=== PATIENT | female | born 1955 | race American Indian/Alaskan Native ===

== ENCOUNTER 2017-01-24 14:44 | Outpatient (CLI) | payer OTHER ==
--- NOTE | 2017-01-25 09:14 | Mammography Report ---
Screening mammogram: Routine views are obtained. In the lateral right breast is an inhomogeneous lobulated nodule. In the central left breast there are also focal asymmetries. The remainder the breast pattern is heterogeneous with symmetric and diffuse distribution. CAD used. Impression: Bilateral asymmetries. Recommendation: Prior exams are being requested. Comparison report will be issued if made available. Final recommendation will be made following comparison. BI-RADS CATEGORY: 0 = Needs additional imaging evaluation ACR BI-RADS MAMMOGRAPHIC CODES: 0 = Needs additional imaging evaluation; 1 = Negative; 2 = Benign; 3 = Probably benign; 4 = Suspicious; 5 = Malignant; 6 = Known biopsy-proven malignancy COMMENT: 1. Dense breast tissue, i.e., adenosis, fibrocystic changes, etc., may obscure an underlying neoplasm. 2. Approximately 10% of cancers are not detected with mammography. 3. A negative mammography report should not delay biopsy if a clinically suspicious mass is present.
== END 2017-01-24 14:45 | disposition home or self-care (01) ==
LOC: MAMMO 14:44
PROVIDERS: ATTEND Obstetrics & Gynecology Gynecology
DX: Z12.31 Encounter for screening mammogram for malignant neoplasm of breast (principal)
CPT/HCPCS: 77067; G0202